=== PATIENT | female | born 1970 | race Caucasian/White ===

== ENCOUNTER 2019-11-03 16:39 | Emergency (ER) | payer OTHER, SELFPAY ==
[2019-11-03 16:49] VITALS: BP 151/86; PULSE 85; RESP 20; TEMP 36.4; O2SAT 100
--- NOTE | 2019-11-03 16:50 | ED.FEMALEGU ---
HPI - Female Genitourinary General Chief complaint: Urogenital-Female Stated complaint: uti History of Present Illness HPI Narrative: Patient, previously mostly healthy, presents with 1 day history of frequency, suprapubic/urinary pressure, and urgency. No fever, low back pain, hematuria, vomiting/diarrhea, vaginal discharge; no cough SOB. She recalls she had a noncontributory ultrasound the past for similar, yearly symptoms The patient has been informed that they may have pre-hypertension or Hypertension based on a BP reading in the department. I recommend that the patient call the primary care provider listed on their discharge instructions or a physician of their choice this week to arrange follow up for further evaluation of possible pre-hypertension or Hypertension Related Data Home Medications Medication Instructions Recorded Confirmed norethindrone-e.estradiol-iron [Lo 1 tablet PO DAILY 11/03/19 11/03/19 Loestrin Fe] topiramate [Topamax] 100 mg PO BID 11/03/19 11/03/19 Allergies Allergy/AdvReac Type Severity Reaction Status Date / Time codeine Allergy Mild Vomiting Verified 11/03/19 16:57 Penicillins Allergy Mild Unknown Verified 11/03/19 16:57 Review of Systems Review of Systems: Narrative: General/Constitutional: No weight loss,fever Eyes: N0: Redness,discharge Ears/Nose/Throat: No: Epistaxis,ear discharge Respiratory: Denies: Hemoptysis Gastrointestinal: No Vomiting, Bleeding-rectal Skin: No Lumps, eruption Neurologic: No Focal Weakness,Sz Hematologic: Denies: Petechiae/Purpura Psychiatric: No: Suicida ideationl All Other Systems: Reviewed and Negative PMFSH Comments At time of signature, agree with nursing past medical, surgical, social and family history. There is no relevant family history pertinent to the presenting complaint Exam Narrative: Exam Narrative: General Appearance: Well appearing, No distress, Conjunctiva clear Mouth/Throat: Normal appearing, Normal lips, Supple Respiratory: Airway patent, No respiratory distress Abdomen: Soft, Non-tender, no CVAT Skin: Warm, Dry Neurological: A&O x3, Normal affect Course Vital Signs Vital signs: Vital Signs Temperature 97.5 F L 11/03/19 16:49 Pulse Rate 85 11/03/19 16:49 Respiratory Rate 20 11/03/19 16:49 Blood Pressure 151/86 H 07/26/20 16:49 Pulse Oximetry 100 07/26/20 16:49 Temperature 97.5 F L 11/03/19 16:49 Pulse Rate 85 11/03/19 16:49 Respiratory Rate 20 11/03/19 16:49 Blood Pressure 151/86 H 11/03/19 16:49 Pulse Oximetry 100 11/03/19 16:49 MDM - Female Genitourinary Lab Data Labs: Urine Glucose Trace Reference Range: Negative Urine Bilirubin 1+ Reference Range: Negative Urine Ketone Trace Reference Range: Negative Urine Specific [place] 1.025 Reference Range:1.001-1.035 Urine Blood Trace Reference Range: Negative * * Urine pH 5.0 Reference Range: 5.0-9.0 Urine Protein 2+ Reference Range: Negative Urine Urobilinogen 2.0 Reference Range: 0.2-1.0 Urine Nitrate Positive Reference Range: Negative Urine Leukocyte 3+ Reference Range: Negative Urine Color [place] Reference Range: Yellow Urine Characteristics Clear Urine Characteristics Clear Comment patient took azo Discharge Plan Discharge Clinical Impression: Urinary tract infection Qualifiers: Urinary tract infection type: acute cystitis Hematuria presence: without hematuria Qualified Code(s): N30.00 - Acute cystitis without hematuria Patient Disposition: Home, Self-Care Condition: Stable Instructions: Antibiotic Form, Urinar
== END 2019-11-03 17:20 | disposition home or self-care (01) ==
PROVIDERS: Emergency Provider Emergency Medicine; PCP Family Medicine
DX: N30.00 Acute cystitis without hematuria (principal)
CPT/HCPCS: 81003; 87086; 87088; 99213; G0463